=== PATIENT | female | born 1990 | race Caucasian/White ===

== ENCOUNTER 2020-04-10 14:07 | Emergency (ER) | payer MEDICAID, SELFPAY ==
[~2020-04-10] VITALS: Ht 165.1 cm; Wt 68.0 kg
[2020-04-10 14:21] VITALS: Ht 165.1 cm; Wt 68.0 kg
[2020-04-10 16:01] VITALS: BP 117/77
[2020-04-10 16:34] LABS: BASOPHIL % 0.6 % (0-2); PLATELET COUNT 201 x10^3mcL (130-400); RED CELL DISTRIBUTION WIDTH 13.4 % (11.5-14.5)
[2020-04-10 17:09] LABS: ALKALINE PHOSPHATASE 98 U/L (46-116); ALT/SGPT 31 U/L (14-59); AST/SGOT 23 U/L (15-37); BILIRUBIN TOTAL 0.25 mg/dL (0.20-1.00); C REACTIVE PROTEIN 1.7 mg/dL (<=0.9); CALCIUM 8.1 mg/dL (8.5-10.1); CHLORIDE SERUM 109 mmol/L (98-107); CREATININE SERUM 0.9 mg/dL (0.6-1.0); GFR1 > 60 mL/min; GLUCOSE SERUM 115 mg/dL (74-106); LACTIC DEHYDROGENASE (LDH) 217 U/L (100-190); POTASSIUM SERUM 3.6 mmol/L (3.5-5.1); SODIUM SERUM 143 mmol/L (136-145); TOTAL PROTEIN, SERUM 7.2 g/dL (6.4-8.2)
[2020-04-10 17:19] LABS: ALBUMIN 3.3 g/dL (3.4-5.0)
[2020-04-10 17:22] LABS: CARBON DIOXIDE 9.5 mmol/L (21-32)
== END 2020-04-10 22:40 | disposition home or self-care (01) ==
LOC: ED 14:07
PROVIDERS: Emergency Medicine
DX: U07.1 COVID-19 (principal); J98.11 Atelectasis; F25.9 Schizoaffective disorder, unspecified; E11.9 Type 2 diabetes mellitus without complications; F17.210 Nicotine dependence, cigarettes, uncomplicated
CPT/HCPCS: 36600; 83880; 85378; 87804; J0456; J0696; Q0092